=== PATIENT | male | born 1965 ===

== ENCOUNTER → 2019-05-27 | Outpatient (CLI) | payer OTHER ==
[2019-05-27 16:05] LABS: BASOPHILS ABSOLUTE AUTO 0.05 K/mm3 (0.00-0.23); BASOPHILS PERCENT AUTO 1 % (0-2); EOSINOPHILS PERCENT AUTO 5 % (0-6); Hematocrit 46.8 % (37.0-53.0); Hemoglobin 16.1 g/dL (13.5-17.5); IMMATURE GRAN ABSOLUTE AUTO 0.03 K/mm3 (0.00-0.10); IMMATURE GRAN PERCENT AUTO 0 % (0-1); LYMPHOCYTES ABSOLUTE AUTO 1.54 K/mm3 (0.84-5.20); LYMPHOCYTES PERCENT AUTO 18 % (21-46); MONOCYTES ABSOLUTE AUTO 0.81 K/mm3 (0.16-1.47); MONOCYTES PERCENT AUTO 9 % (4-13); Mean Corpuscular HGB 32.4 pg (26.0-34.0); Mean Corpuscular HGB Conc 34.4 g/dL (31.5-36.5); Mean Corpuscular Volume 94 fL (80-100); Mean Platelet Volume 9.4 fL (9.1-12.4); NEUTROPHILS ABSOLUTE AUTO 5.84 K/mm3 (1.96-9.15); NEUTROPHILS PERCENT AUTO 67 % (41-73); Platelet Count 247 K/mm3 (150-400); RDW Coefficient Variation 11.9 % (11.7-14.2); RDW Standard Deviation 41.1 fL (35.1-46.3); Red Blood Cell Count 4.97 M/mm3 (4.30-5.90); White Blood Cell Count 8.67 K/mm3 (4.00-11.30)
[2019-05-27 16:31] LABS: Alanine Aminotransfer (ALT/SGP 63 U/L (12-78); Albumin, Blood 3.8 g/dL (3.4-5.0); Albumin/Globulin Ratio 0.9 (0.8-1.8); Alk Phos 63 U/L (50-136); Anion Gap 5 mmol/L (6-16); Aspartate Aminotrans (AST/SGOT 45 U/L (12-37); Bilirubin, Total 0.6 mg/dL (0.1-1.0); Blood Urea Nitrogen 11 mg/dL (8-24); Bun/Creatinine Ratio 12.9 (12.0-20.0); CO2, Blood 27 mmol/L (21-32); Calcium, Blood 9.1 mg/dL (8.5-10.1); Chloride, Blood 108 mmol/L (98-108); Creatinine, Blood 0.85 mg/dL (0.60-1.20); Globulin, Blood 4.2 g/dL (2.2-4.0); Glomerular Filtration Rate >60 (60-); Glucose, Blood 94 mg/dL (70-99); Sodium, Blood 140 mmol/L (136-145)
== END ==
LOC: LAB 15:32 → LAB SHORT 15:32
PROVIDERS: Nurse Practitioner
DX: R53.83 Other fatigue (principal); R05 Cough
CPT/HCPCS: 80053; 85025

== ENCOUNTER → 2020-09-22 | Outpatient (CLI) | payer OTHER | END | disposition home or self-care (01) | LOC: LAB 16:50 → LAB SHORT 16:50 | DX: U07.1 COVID-19 (principal) | CPT/HCPCS: U0003 ==

== ENCOUNTER → 2023-09-08 | Outpatient (CLI) | payer OTHER ==
[2023-09-08 15:54] LABS: Alanine Aminotransfer (ALT/SGP 78 U/L (12-78); Albumin/Globulin Ratio 1.1 (0.8-1.8); Alk Phos 58 U/L (50-136); Anion Gap 8 mmol/L (6-16); Aspartate Aminotrans (AST/SGOT 59 U/L (12-37); Bilirubin, Total 1.2 mg/dL (0.1-1.0); Blood Urea Nitrogen 10 mg/dL (8-24); Bun/Creatinine Ratio 10.4 (12.0-20.0); CHOL/HDL RATIO 2.7; CO2, Blood 26 mmol/L (21-32); Calcium, Blood 9.1 mg/dL (8.5-10.1); Chloride, Blood 108 mmol/L (98-108); Cholesterol 171 mg/dL (50-200); Creatinine, Blood 0.96 mg/dL (0.60-1.20); Globulin, Blood 3.5 g/dL (2.2-4.0); Glomerular Filtration Rate 93 (60-); Glucose, Blood 108 mg/dL (70-99); HDL Cholesterol 64 mg/dL (>39); LDL/HDL RATIO 1.5; Low Density Lipoprotein Chol 96 mg/dL (0-110); Potassium, Blood 4.6 mmol/L (3.5-5.5); Sodium, Blood 142 mmol/L (136-145); Total Protein, Blood 7.5 g/dL (6.4-8.2); Triglycerides 55 mg/dL (30-160); Very Low Density Lipoprot Chol 11 mg/dL (6-32)
== END | disposition home or self-care (01) ==
LOC: LAB 10:45 → LAB SHORT 10:45
PROVIDERS: Hospitalist
DX: Z00.00 Encounter for general adult medical examination without abnormal findings (principal); Z13.1 Encounter for screening for diabetes mellitus; Z13.220 Encounter for screening for lipoid disorders
CPT/HCPCS: 80053; 80061

== ENCOUNTER 2025-04-05 15:36 | Emergency (ER) | payer OTHER ==
[~2025-04-05] VITALS: Ht 172.7 cm; Wt 81.7 kg
[2025-04-05 16:32] LABS: Base Excess Venous -0.2 mmol/L; Bicarbonate Venous 24.9 mmol/L (24.0-30.0); PCO2 Venous 33.3 mmHg (38-42); pH Blood Venous 7.46 (7.34-7.37)
[2025-04-05 16:46] LABS: BASOPHILS ABSOLUTE AUTO 0.06 K/mm3 (0.00-0.23); BASOPHILS PERCENT AUTO 1 % (0-2); EOSINOPHILS ABSOLUTE AUTO 0.51 K/mm3 (0.00-0.68); EOSINOPHILS PERCENT AUTO 10 % (0-6); Hematocrit 42.7 % (37.0-53.0); Hemoglobin 15.3 g/dL (13.5-17.5); IMMATURE GRAN ABSOLUTE AUTO 0.01 K/mm3 (0.00-0.10); IMMATURE GRAN PERCENT AUTO 0 % (0-1); LYMPHOCYTES ABSOLUTE AUTO 1.65 K/mm3 (0.84-5.20); LYMPHOCYTES PERCENT AUTO 33 % (21-46); MONOCYTES PERCENT AUTO 10 % (4-13); Mean Corpuscular HGB 31.7 pg (26.0-34.0); Mean Corpuscular HGB Conc 35.8 g/dL (31.5-36.5); Mean Corpuscular Volume 88 fL (80-100); Mean Platelet Volume 10.1 fL (9.1-12.4); NEUTROPHILS ABSOLUTE AUTO 2.27 K/mm3 (1.96-9.15); NEUTROPHILS PERCENT AUTO 45 % (41-73); Platelet Count 177 K/mm3 (150-400); RDW Standard Deviation 39.1 fL (35.1-46.3); Red Blood Cell Count 4.83 M/mm3 (4.30-5.90)
[2025-04-05 18:15] LABS: Albumin, Blood 4.1 g/dL (3.4-5.0); Albumin/Globulin Ratio 1.2 (0.8-1.8); Bun/Creatinine Ratio 12.8 (12.0-20.0); Calcium, Blood 9.3 mg/dL (8.5-10.1); Creatinine, Blood 0.94 mg/dL (0.60-1.20); Globulin, Blood 3.5 g/dL (2.2-4.0); Potassium, Blood 3.9 mmol/L (3.5-5.5); Total Protein, Blood 7.6 g/dL (6.4-8.2)
[2025-04-05 19:33] LABS: Source, Urine Clean Catch
[2025-04-05 19:37] LABS: Appearance, Urine Clear (Clear); Bilirubin, Urine Neg (Neg); Blood, Urine Neg (Neg); Glucose Qualitative, Urine Neg (Neg); Ketones, Urine Neg (Neg); Leukocyte Esterase, Urine Neg (Neg); Nitrite, Urine Neg (Neg); Protein, Urine Neg (Neg); Urobilinogen, Urine NORM (Normal)
[2025-04-05 19:41] LABS: Color, Urine Pale Yellow (P-Yellow)
[2025-04-05 20:28] LABS: Base Excess Venous -0.8 mmol/L; Bicarbonate Venous 24.2 mmol/L (24.0-30.0); PCO2 Venous 35.4 mmHg (38-42); pH Blood Venous 7.43 (7.34-7.37)
[2025-04-05 21:03] LABS: Alanine Aminotransfer (ALT/SGP 56 U/L (12-78); Albumin, Blood 3.8 g/dL (3.4-5.0); Albumin/Globulin Ratio 1.1 (0.8-1.8); Alk Phos 49 U/L (50-136); Anion Gap 9 mmol/L (3-11); Aspartate Aminotrans (AST/SGOT 49 U/L (12-37); Bilirubin, Total 1.2 mg/dL (0.1-1.0); Blood Urea Nitrogen 12 mg/dL (8-24); Bun/Creatinine Ratio 14.5 (12.0-20.0); CO2, Blood 23 mmol/L (21-32); Calcium, Blood 8.9 mg/dL (8.5-10.1); Chloride, Blood 109 mmol/L (98-108); Creatinine, Blood 0.83 mg/dL (0.60-1.20); Ethanol (Alcohol), Blood, Med <3 mg/dL; Globulin, Blood 3.5 g/dL (2.2-4.0); Glomerular Filtration Rate 102 (60-); Glucose, Blood 97 mg/dL (70-99); Potassium, Blood 3.9 mmol/L (3.5-5.5); Sodium, Blood 137 mmol/L (136-145); Total Protein, Blood 7.3 g/dL (6.4-8.2)
[2025-04-05 21:40] VITALS: BP 123/85
== END 2025-04-05 21:50 | disposition home or self-care (01) ==
LOC: ER 15:36
PROVIDERS: Student in an Organized Health Care Education/Training Program
DX: T47.3X1A Poisoning by saline and osmotic laxatives, accidental (unintentional), initial encounter (principal); R11.0 Nausea; R41.0 Disorientation, unspecified
CPT/HCPCS: 80053; 80320; 81003; 82803; 83605; 83930; 85025; 93005; 93010; 99284-25